=== PATIENT | male | born 1990 | race Caucasian/White ===

== ENCOUNTER → 2016-10-30 | Outpatient (CLI) | payer BC ==
[~2016-10-30] MED LIST: ASPIR 8181 MG PO; CUBICIN 500 MG500 MG INJ; DOCUSATE SODIU250 MG PO; ONCE DAILY1 EACH PO; VANCOMYCIN HCL750 MG IV; ZOFRAN 4 MG TAB4 MG PO
== END ==
LOC: KOH-I 12:01
DX: S83.241A Other tear of medial meniscus, current injury, right knee, initial encounter (principal); R60.0 Localized edema; M25.461 Effusion, right knee
CPT/HCPCS: 73721

== ENCOUNTER → 2016-10-30 | Outpatient (CLI) | payer BC ==
[2016-10-30 15:35] LABS: HEMOGLOBIN 14.9 gm/dl (14.0-17.5); RED BLOOD COUNT 4.89 M/UL (4.20-5.50); WHITE BLOOD COUNT 7.1 K/UL (4.5-11.0)
== END ==
LOC: LBRF 14:41 → LAB 14:41
PROVIDERS: Orthopaedic Surgery
DX: M25.461 Effusion, right knee (principal)
CPT/HCPCS: 36415; 85025; 86140; 87070; 87205; 89051; 89060

== ENCOUNTER → 2020-07-28 | Outpatient (CLI) | payer OTHER ==
[~2020-07-28] MED LIST changes: +BACTRIM DS TAB1 EACH PO; +IBUPROFEN600 MG PO; +KEFLEX CAP 500500 MG PO
== END ==
LOC: EMI 08:08
DX: S46.812A Strain of other muscles, fascia and tendons at shoulder and upper arm level, left arm, initial encounter (principal); M89.8X1 Other specified disorders of bone, shoulder; R60.0 Localized edema; X58.XXXA Exposure to other specified factors, initial encounter
CPT/HCPCS: 73221

== ENCOUNTER 2020-10-10 13:49 | Emergency (ER) | payer OTHER | END 2020-10-10 16:20 | disposition home or self-care (01) | LOC: ER1 13:49 | DX: M79.661 Pain in right lower leg (principal); M79.89 Other specified soft tissue disorders; Z88.0 Allergy status to penicillin | CPT/HCPCS: 93971; 99283 ==

== ENCOUNTER → 2021-06-22 | Outpatient (CLI) | payer OTHER | LOC: RAD 08:00 | DX: S43.431A Superior glenoid labrum lesion of right shoulder, initial encounter (principal); M75.121 Complete rotator cuff tear or rupture of right shoulder, not specified as traumatic | CPT/HCPCS: 73040; 73222; Q9967 ==